=== PATIENT | male | born 1970 | race Caucasian/White ===

== ENCOUNTER 2020-01-24 12:36 | Emergency (ER) | payer OTHER, SELFPAY ==
[2020-01-24 13:05] VITALS: PULSE 83; RESP 14; TEMP 36.4; O2SAT 96; BMI 25.1
--- NOTE | 2020-01-24 13:33 | PC.NURSE ---
pt acting suspicious at triage. pt refusing to answer questions about the animal. explained to the patient the reason for the questions is to evaluate the level of risk he may be exposed to. explained if it is a cat with vaccines he is at minimal risk, if it is a wild cat he may be at much greater risk. pt states this is very aggressive questioning, i just want to leave verified if he would like to be seen by ED provider pt states yes but I will not answer anymore question about the cat.
--- NOTE | 2020-01-24 15:29 | ED.ANIMALBIT ---
HPI - Animal Bite General Chief Complaint: Animal Bite Stated Complaint: Has been bit by his cat Time Seen by Provider: 01/24/20 12:53 Source: patient Mode of arrival: Ambulatory History of Present Illness HPI narrative: This patient was not seen or evaluated in the emergency department. The patient had another emergency that he had to take care of and could not stay to be evaluated and left. Related Data Allergies Allergy/AdvReac Type Severity Reaction Status Date / Time No Known Drug Allergies Allergy Verified 01/24/20 13:04 Patient History Social History Smoking Status: Never smoker Smoking Status: Never smoker alcohol intake frequency: a few times a week Alcohol type: beer Substance Use Type: does not use Exam Initial Vital Signs Initial Vital Signs: Vital Signs Temperature 97.6 F 01/24/20 13:05 Pulse Rate 83 01/24/20 13:05 Respiratory Rate 14 01/24/20 13:05 Pulse Oximetry 96 01/24/20 13:05 Course Vital Signs Vital signs: Vital Signs - 8 hr 01/24/20 13:05 Temperature 97.6 F Pulse Rate 83 Respiratory Rate 14 Pulse Oximetry 96 Discharge Plan Departure Patient Disposition: Left Without Being Seen Clinical Impression: Patient left after triage Discharge Date/Time: 01/24/20 13:38
== END 2020-01-24 13:38 | disposition left against medical advice (07) ==
PROVIDERS: Emergency Provider Emergency Medicine
CPT/HCPCS: 99281